=== PATIENT | female | born 1990 | race African-American/Black ===

== ENCOUNTER 2018-12-14 15:19 | Emergency (ER) | payer MEDICAID ==
[~2018-12-14] VITALS: Ht 172.7 cm; Wt 89.0 kg
[2018-12-14 18:03] VITALS: BP 120/81
== END 2018-12-14 19:27 | disposition left against medical advice (07) ==
LOC: ER 15:19
DX: R68.84 Jaw pain (principal)
CPT/HCPCS: 99281